=== PATIENT | female | born 2000 | race African-American/Black ===

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

== ENCOUNTER 2022-04-01 18:56 | Emergency (ER) | payer BC, OTHER | END 2022-04-01 19:30 | disposition home or self-care (01) | LOC: NAV ERS 18:56 | DX: U07.1 COVID-19 (principal); J06.9 Acute upper respiratory infection, unspecified | CPT/HCPCS: 99283; U0003; U0005 ==

== ENCOUNTER 2022-05-07 05:34 | Emergency (ER) | payer BC ==
[2022-05-07] MEDS ORDERED: Ondansetron PF 4 MG/2 ML Vial ONE (06:00)
[2022-05-07] MEDS ORDERED: Ketorolac Tromethamine 30 MG/ML VIAL ONE (06:00)
[2022-05-07] MEDS ORDERED: Morphine 4 MG/ML VIAL ONE (06:00)
[2022-05-07 06:37] LABS: #Basophils 0.1 thou/uL (0.0-0.2); #Eosinphils 0.2 thou/uL (0.0-0.7); #Lymphocytes 1.6 thou/uL (1.20-3.40); #Monocytes 0.3 thou/uL (0.11-0.59); #Neutrophils 2.6 thou/uL (1.40-6.50); %Eosinophils 3.3 % (0.0-10.0); %Lymphocytes 34.1 % (21.0-51.0); %Monocytes 6.7 % (0.0-10.0); Hemoglobin 12.8 g/dL (12.0-16.0); Mean Corpuscular HGB CONC 30.2 g/dL (32.0-36.0); Mean Corpuscular Volume 92.7 fL (78.0-98.0); Mean Platelet Volume 8.1 fL (7.4-10.4); Platelet Count 284 thou/uL (130-400); RBC Distribution Width 13.9 % (11.5-14.5); Red Blood Cell (RBC) Count 4.56 mill/uL (4.20-5.40); White Blood Cell (WBC) Count 4.8 thou/uL (4.8-10.8)
[2022-05-07 06:50] LABS: Anion Gap 13 mmol/L (10-20); BUN (Urea Nitrogen) 6 mg/dL (7.0-18.7); Calc. Creatinine Clearance 0 mL/min (70-130); Calcium 8.8 mg/dL (7.8-10.44); Carbon Dioxide 23 mmol/L (22-29); Chloride 107 mmol/L (98-107); Estimated GFR 127; Glucose 102 mg/dL (70-105); Potassium 3.5 mmol/L (3.5-5.1); Sodium 139 mmol/L (136-145)
== END 2022-05-07 07:21 | disposition home or self-care (01) ==
LOC: NAV ERS 05:34
DX: M25.552 Pain in left hip (principal)
CPT/HCPCS: 80048; 85025; 96374; 96375; J1885; J2270; J2405